=== PATIENT | male | born 1960 | race Hispanic/Latino ===

== ENCOUNTER 2016-08-24 01:31 | Emergency (ER) | payer SELFPAY ==
[2016-08-24 02:22] VITALS: BP 136/75
[2016-08-24 04:18] LABS: Hematocrit 37.4 % (35.5-45.6); Hemoglobin 12.6 gm/dl (11.8-15.2); Mean Corpuscular HGB Conc 34 % (32-34); Mean Corpuscular Hemoglobin 32 pg (28-32); Mean Corpuscular Volume 94 fl (84-94); Platelet Count 282 K/mm3 (140-440); Red Blood Count 3.96 M/mm3 (3.65-5.03); Red Cell Distribution Width 14.7 % (13.2-15.2); White Blood Count 8.4 K/mm3 (4.5-11.0)
[2016-08-24 04:35] LABS: Alanine Aminotransferase 8 units/L (7-56); Albumin 4.3 g/dL (3.9-5); Albumin/Globulin Ratio 1.2 %; Alkaline Phosphatase 68 units/L (35-129); BUN/Creatinine Ratio 7.14; Blood Urea Nitrogen 5 mg/dL (9-20); Calcium 8.9 mg/dL (8.4-10.2); Chloride 96.5 mmol/L (98-107); Glucose 81 mg/dL (75-100); Lipase 36 units/L (13-60); Potassium 4.8 mmol/L (3.6-5.0); Sodium 134 mmol/L (137-145)
[2016-08-24 04:57] LABS: Anion Gap 17 mmol/L; Carbon Dioxide 25 mmol/L (22-30)
[2016-08-24 05:28] LABS: Blastocytes % (Manual) 0 %
[2016-08-24 05:29] LABS: Diff Status Complete; Platelet Estimate Consistent w Auto; RBC Morphology Normal
== END 2016-08-24 06:25 | disposition left against medical advice (07) ==
LOC: ED 01:31
DX: R30.0 Dysuria (principal); Z53.21 Procedure and treatment not carried out due to patient leaving prior to being seen by health care provider
CPT/HCPCS: 36415; 80053; 83690; 85007; 85025; G0480; 80320

== ENCOUNTER 2019-03-06 14:40 | Outpatient (CLI) | payer MEDICAID ==
--- NOTE | 2019-03-06 15:51 | XRay Report ---
LEFT RIBS HISTORY: History of rib fractures, left anterior lower rib pain COMPARISON: None. FINDINGS: No evidence of acute displaced left rib fracture is identified. Evidence of remote healed right 8th p osterior rib fracture and subacute healing right lateral 10th rib fracture. Cardiac silhouette is within normal limits in terms of size. Lungs are clear without focal pulmonary consolidation or edema. No pneumothorax or pleural effusion. IMPRESSION: No evidence of acute displaced left rib fracture Remote healed right 8th posterior rib fracture and subacute healing right lateral 10th rib fracture. Signer Name: Derrek Hare MD Signed: 03/06/2019 3:46 PM Workstation Name: [id number]
--- NOTE | 2019-03-06 15:55 | Ultrasound Report ---
LIMITED ABDOMINAL ULTRASOUND HISTORY: Left upper abdominal pain COMPARISON: None. TECHNIQUE: Sonographic evaluation focused in left upper abdomen was performed. FINDINGS: Targeted ultrasound of the left anterior abdomen in the region of pain shows no suspicious solid or c ystic lesion. No sonographic correlate to explain patient's reported pain in this region. The left kidney measures up to 10.3 cm in maximum dimension. There is mild cortical thinning which me asures up to 1.3 cm. No evidence of hydronephrosis. No renal calculus. The spleen is poorly visualize d, but is estimated to measure 7.8 cm in largest dimension. IMPRESSION: Unremarkable left upper abdominal ultrasound. No acute findings or findings to explain patient's repo rted left anterior upper abdominal pain Signer Name: Derrek Hare MD Signed: 03/06/2019 3:50 PM Workstation Name: [id number]
== END 2019-03-06 14:41 | disposition home or self-care (01) ==
LOC: SPVWC 14:40 → SPVIMAG 14:40
PROVIDERS: ATTEND Internal Medicine
DX: S22.41XD Multiple fractures of ribs, right side, subsequent encounter for fracture with routine healing (principal); R07.81 Pleurodynia; X58.XXXD Exposure to other specified factors, subsequent encounter
CPT/HCPCS: 76705